=== PATIENT | female | born 1970 | race Caucasian/White ===

== ENCOUNTER 2019-03-28 05:56 | Day surgery (SDC) | payer OTHER ==
[2019-03-28] MEDS ORDERED: POLYMYXIN/BACITRACIN 1L IRRIG (07:04)
[2019-03-28] MEDS ORDERED: THROMBIN 5000 UNIT VIAL (07:04)
[2019-03-28] MEDS ORDERED: BUPIVACAINE 0.5%/EPI (SDV) 30 ML INJ (07:04)
[2019-03-28] MEDS ORDERED: EPINEPHrine 1 MG/ML 30 ML INJ INJ (07:30)
[2019-03-28] MEDS ORDERED: SUCCINYLCHOLINE CHLORIDE 100 MG/5 ML SYG IV (07:38)
[2019-03-28] MEDS ORDERED: ROPIVACAINE 0.5 % 30 ML VIAL (07:38)
[2019-03-28] MEDS ORDERED: ROCURONIUM 50 MG INJ (07:38)
[2019-03-28] MEDS ORDERED: MIDAZOLAM 1 MG/ML 2 ML INJ (07:38)
[2019-03-28] MEDS ORDERED: PROPOFOL 20 ML (07:38)
[2019-03-28] MEDS ORDERED: LIDOCAINE 2% (SDV) 5 ML INJ (07:38)
[2019-03-28] MEDS: EPINEPHrine 1 MG/ML 30 ML INJ IRR ×2 (07:39→08:43)
[2019-03-28] MEDS ORDERED: FENTAnyl 50 MCG/ML VIAL (07:52)
[2019-03-28] MEDS ORDERED: LACTATED RINGER'S 1,000 ML IV (08:00)
[2019-03-28] MEDS ORDERED: EPHEDrine 25 MG/5 ML SYG (08:19)
[2019-03-28] MEDS ORDERED: FAMOTIDINE 20 MG INJ (08:32)
[2019-03-28] MEDS ORDERED: ONDANSETRON 4 MG INJ (08:32)
[2019-03-28] MEDS: morphine SULFATE/PF (10 MG/10 ML) INJ (08:43)
[2019-03-28] MEDS ORDERED: GLYCOPYRROLATE 0.4 MG INJ (09:48)
[2019-03-28] MEDS ORDERED: NEOSTIGMINE 3 MG/3 ML SYRINGE (09:48)
[2019-03-28] MEDS ORDERED: SUGAMMADEX SODIUM 200 MG/2 ML VIAL IV (09:53)
[2019-03-28] MEDS: ONDANSETRON 4 MG INJ IV (10:18)
[2019-03-28] MEDS ORDERED: DIPHENHYDRAMINE 50 MG INJ IV (10:30)
[2019-03-28] MEDS ORDERED: FENTAnyl 50 MCG/ML VIAL IV ×3 (10:30)
[2019-03-28] MEDS ORDERED: LABETALOL HCL 20MG INJ IV (10:30)
[2019-03-28] MEDS ORDERED: HYDROmorphONE 1 MG/5 ML IV SYRINGE IV ×3 (10:30)
[2019-03-28] MEDS ORDERED: OXYCODONE/ACETAMINOPHEN (5/325) TAB PO (10:30)
[2019-03-28] MEDS ORDERED: PANTOPRAZOLE 40 MG INJ IV (10:30)
[2019-03-28] MEDS ORDERED: INSULIN ASPART [NOVOLOG] 3 ML PEN SC (10:30)
[2019-03-28] MEDS ORDERED: PROCHLORPERAZINE 10 MG INJ IV (10:30)
[2019-03-28] MEDS ORDERED: MEPERIDINE 25 MG INJ IV (10:30)
[2019-03-28] MEDS ORDERED: EPHEDrine 25 MG/5 ML SYG IV (10:30)
[2019-03-28] MEDS ORDERED: hydrALAzine 20 MG INJ IV (10:30)
[2019-03-28] MEDS: FAMOTIDINE 20 MG INJ IV (10:56)
[2019-03-28] MEDS ORDERED: PANTOPRAZOLE (EC) 40 MG TAB PO (11:00)
== END 2019-03-28 12:20 | disposition home or self-care (01) ==
LOC: SDS 05:56
DX: S43.431D Superior glenoid labrum lesion of right shoulder, subsequent encounter (principal); X58.XXXD Exposure to other specified factors, subsequent encounter; M75.101 Unspecified rotator cuff tear or rupture of right shoulder, not specified as traumatic; I10 Essential (primary) hypertension; E11.9 Type 2 diabetes mellitus without complications; Z79.84 Long term (current) use of oral hypoglycemic drugs
CPT/HCPCS: 29807; 71045; 82962